=== PATIENT | female | born 1975 | race Caucasian/White ===

== ENCOUNTER 2017-01-26 11:40 | Emergency (ER) | payer OTHER | END 2017-01-26 13:15 | disposition home or self-care (01) | LOC: ER1 11:40 | DX: S83.511A Sprain of anterior cruciate ligament of right knee, initial encounter (principal); I10 Essential (primary) hypertension; E78.5 Hyperlipidemia, unspecified; M19.90 Unspecified osteoarthritis, unspecified site; Z79.899 Other long term (current) drug therapy; W01.0XXA Fall on same level from slipping, tripping and stumbling without subsequent striking against object, initial encounter | CPT/HCPCS: 73564; 99283 ==

== ENCOUNTER → 2020-12-04 | Outpatient (CLI) | payer OTHER ==
[~2020-12-04] MED LIST: DIASTAT 2.5 MG2.5 MG PR; NAPROXEN500 MG PO; NORCO 5-325 TA1 EACH PO; NORFLEX 100 MG100 MG PO; PAXIL40 MG PO; PREDNISONE50 MG PO; PROTONIX40 MG PO; VENTOLIN HFA 66.7 GM INH; ZANAFLEX4 MG PO
== END ==
LOC: KOH-I 11-21 13:45
DX: M47.816 Spondylosis without myelopathy or radiculopathy, lumbar region (principal)
CPT/HCPCS: 72148

== ENCOUNTER 2021-02-03 14:50 | Emergency (ER) | payer OTHER ==
[~2021-02-03 14:50] MED LIST changes: -DIASTAT 2.5 MG2.5 MG PR; -NAPROXEN500 MG PO; -NORFLEX 100 MG100 MG PO; -PREDNISONE50 MG PO
[2021-02-04] MEDS ORDERED: NORFLEX 100 MG100 MG PO (08:43)
[2021-02-04] MEDS ORDERED: NAPROXEN500 MG PO (08:43)
[2021-02-04] MEDS ORDERED: PREDNISONE50 MG PO (08:43)
== END 2021-02-03 17:20 | disposition left against medical advice (07) ==
LOC: ER1 14:50
DX: Z53.21 Procedure and treatment not carried out due to patient leaving prior to being seen by health care provider (principal)

== ENCOUNTER 2021-02-04 07:47 | Emergency (ER) | payer OTHER ==
[2021-02-04] MEDS ORDERED: NORFLEX 100 MG100 MG PO (08:43)
[2021-02-04] MEDS ORDERED: PREDNISONE50 MG PO (08:43)
[2021-02-04] MEDS ORDERED: NAPROXEN500 MG PO (08:43)
== END 2021-02-04 09:15 | disposition home or self-care (01) ==
LOC: ER1 07:47
DX: M54.41 Lumbago with sciatica, right side (principal); F17.210 Nicotine dependence, cigarettes, uncomplicated; Z88.2 Allergy status to sulfonamides; Z88.8 Allergy status to other drugs, medicaments and biological substances
CPT/HCPCS: 96372; 99283; J2930

== ENCOUNTER 2021-02-14 21:47 | Emergency (ER) | payer OTHER ==
[~2021-02-14 21:47] MED LIST changes: +NAPROXEN500 MG PO; +NORFLEX 100 MG100 MG PO; +PREDNISONE50 MG PO
[2021-02-14 22:04] LABS: HEMOGLOBIN 16.6 gm/dl (12.3-15.3); RED BLOOD COUNT 5.29 M/UL (4.00-5.10); WHITE BLOOD COUNT 13.8 K/UL (4.5-11.0)
[2021-02-14 22:38] LABS: BUN/CREATININE RATIO 11 (0-10)
[2021-02-14] MEDS ORDERED: DIASTAT 2.5 MG2.5 MG PR (23:29)
== END 2021-02-14 23:42 | disposition home or self-care (01) ==
LOC: ER1 21:47
PROVIDERS: Physician Assistant
DX: R56.9 Unspecified convulsions (principal); F41.0 Panic disorder [episodic paroxysmal anxiety]; I10 Essential (primary) hypertension; Z79.899 Other long term (current) drug therapy
CPT/HCPCS: 80053; 82550; 82553; 83874; 84439; 84443; 84484; 85025; 96374; 99285; J7030

== ENCOUNTER → 2021-03-24 | Outpatient (CLI) | payer OTHER ==
[~2021-03-24] MED LIST changes: +DIASTAT 2.5 MG2.5 MG PR
== END ==
LOC: RAD 11:05
DX: M25.50 Pain in unspecified joint (principal); M54.9 Dorsalgia, unspecified
CPT/HCPCS: 72110; 72202

== ENCOUNTER 2021-09-14 15:33 | Emergency (ER) | payer OTHER ==
[2021-09-14 17:04] LABS: HEMOGLOBIN 14.1 gm/dl (12.3-15.3); RED BLOOD COUNT 4.66 M/UL (4.00-5.10); WHITE BLOOD COUNT 15.1 K/UL (4.5-11.0)
[2021-09-14 17:57] LABS: BUN/CREATININE RATIO 18 (0-10)
[2021-09-14] MEDS ORDERED: IBUPROFEN600 MG PO (18:16)
[2021-09-14] MEDS ORDERED: AUGMENTIN 875-1 EACH PO (18:24)
== END 2021-09-14 18:25 | disposition home or self-care (01) ==
LOC: ER1 15:33
PROVIDERS: Physician Assistant
DX: R51.9 Headache, unspecified (principal); Z88.2 Allergy status to sulfonamides
CPT/HCPCS: 70450; 80048; 85025; 85652; 86140; 96374; 99284; J1885